=== PATIENT | female | born 1960 | race Caucasian/White ===

== ENCOUNTER 2022-11-03 11:28 | Observation (INO) ==
--- NOTE | 2022-11-03 12:56 | DR.GENAD ---
HPI Time Seen Time Seen by Provider: 11/03/22 12:56 PCP Primary Care Physician: Justin Frankel/Bon Complaint/Symptoms Chief Complaint Doctors Comments: BLOOD IN STOOL YESTERDAY AND THIS AM Chief Complaint:: Patient noticed yesterday evening an episode of rectal bleeding. She states she has a soft stool prior to noticing the blood, Patient states she had esophageal banding of ligation [facility] per Dr Guo 10/18/22. Patient states she is having pain in umbilical region COVID-19 Coronavirus risk:travel/contact w/high risk person: No Has patient experienced Coronavirus symptoms: No Source History Provided: Patient Mode of Arrival Mode of Arrival: Ambulatory Timing Onset of Chief Complaint: 11/02/22 PMH PMH Past Medical History: Yes Past Medical History: Anemia, Cirrhosis, Diabetes, Hypertension and Hypothyroidism Past Medical History Comment: AFIB Past Surgical History: Yes Surgical History: Cholecystectomy and Tonsillectomy Past Surgical History Comment: Hernia repairs x 3 Family History History of Family Medical Conditions: Yes Family Medical History: Diabetes Mellitus, Coronary Artery Disease, Sudden Cardiac and Hypertension Social History Does patient currently use any type of tobacco product: No Have you used tobacco products in the last 12 months: No Type of Tobacco Use: None Does any household member use tobacco: No Alcohol Use: None Do you use any recreational Drugs:: No Lives With: Spouse Lives Where: Home Travel Risk Coronavirus risk:travel/contact w/high risk person: No Has patient experienced Coronavirus symptoms: No Infectious screening In the last 2 months have you had wt loss of >10#?: NO Have you had fever, night sweats or hemotysis?: No Have you traveled outside the country in the last 6 months?: No Isolation: Standard ROS Review of Systems Constitutional: Other (ABDOMINAL PAIN WITH LOWER GI BLEED) Eyes: No Symptoms Reported ENTM: No Symptoms Reported Respiratoy: No Symptoms Reported Cardiovascular: No Symptoms Reported Gastrointestinal/Abdominal: Abdominal Pain (PERIUMBILICAL) and Nausea Genitourinary: No Symptoms Reported Neurological: No Symptoms Reported Musculoskeletal: No Symptoms Reported Integumentary: No Symptoms Reported Hematologic/Lymphatic: No Symptoms Reported Endocrine: No Symptoms Reported Psychiatric: No Symptoms Reported PE Vital Signs Vitals: Vital Signs Temperature 98.2 F Pulse Rate 64 Respiratory Rate 16 Blood Pressure 131/62 O2 Sat by Pulse Oximetry 99 General Limitations: No Limitations and Physical Limitation (ATAXIC GAIT) General Appearance: In Distress (MODERATE DISTRESS) Head Head Exam: Normal Inspection Eyes Eye exam: Normal Appearance and PERRL ENT ENT Exam: Normal Exam and Normal Oropharynx External Ear Exam: Normal External Inspection TM/Canal Exam: Bilateral: Normal Nose Exam: Normal Nose Exam Mouth Exam: Normal Inspection Throat Exam: Normal Inspection Neck Neck Exam: Normal Inspection Chest Chest Inspection: Normal Inspection and Symmetric Chest Wall Rise Respiratory Respiratory Exam: Normal Lung Sounds Bilat Respiratory Exam: Bilateral: Clear to Auscultation Cardiovascular Cardiovascular Exam: Regular Rate and Normal Rhythm Abdominal Exam Abdominal Exam: Normal Inspection, Normal Bowel Sounds and Tenderness (PERIUMBILICAL AREA) Abdominal Tenderness: Other (PERIUMBILICAL) Extremities Extremities Exam: Normal Inspection Back Back Exam: Normal Inspection Psychiatric Psychiatric Exam: Normal Affect Skin Skin Exam: Warm, Dry and Intact MDM Differential Diagnosis Differential Diagnosis: LOWER GI BLEED, UMBILICAL HERNIA COURSE Treatment Treatment: PATIENT REMAINED STABLE DURING ER VISIT. CT OF ABD/PELVIS SHOWED MIDLIN VENTRAL HERNIA CONTAINING A LOOP OF MILDLY DILATED SMALL BOWEL,MESENTERIC FAT AND PERITONEAL FLUIS. THE LOOP OF SMALL BOWEK WITHIN THE HERNIA IS MILDLY DILATED POSSIBLY DUE TO MILD OBSTRUCTION OFAT THE ORAFICE OF THE HERNIA. ENCARCERATION IS POSSIBLE. SURGICAL EVALUATION IS RECOMENDED. THE PATIEN HAD A POSITIVE HEMOCCULT STOOL. PATIENT WAS TOLD THE RESULTS OF THE FINDINGS AND THAT WE NEEDED TO GET A SURGICAL CONSULT. WE CONSULTED DR CRUZ AT 1655 AND HE STATED THAT HE WOULD CONSULT ON THE PATIENT BUT ADMIT TO MEDICINE. SPOKE TO DR WOO AT 1700 AND HE STATED THAT HE WOULD ACCEPT THE PATIENT. UTILIZATION REVIEW STATED TO ADMIT TO OBSERVATION. INCARCERATED VENTRAL HERNIA AND LOWER GI BLEED. ROR Labs Reviewed Laboratory Results Reviewed?: Yes 11/03/22 12:57 11/03/22 12:57 Laboratory: WBC 2.6 X10^3/uL (3.6-10.0) L 11/03/22 12:57 RBC 3.37 X10^6/uL (3.5-5.4) L 11/03/22 12:57 Hgb 10.7 g/dL (12.0-16.0) L 11/03/22 12:57 Hct 31.1 % (36.0-47.0) L 11/03/22 12:57 MCV 92.3 fL (80.0-100.0) 11/03/22 12:57 MCH 31.6 pg (27.0-34.0) 11/03/22 12:57 MCHC 34.3 g/dL (33.0-35.0) 11/03/22 12:57 RDW 12.8 % (11.6-16.5) 11/03/22 12:57 Plt Count 54 X10^3/uL (150.0-450.0) L 11/03/22 12:57 MPV 8.6 fL (7.4-11.0) 11/03/22 12:57 Neut % (Auto) 71.0 % (42.0-75.0) 11/03/22 12:57 Lymph % (Auto) 12.9 % (21.0-51.0) L 11/03/22 12:57 Bent % (Auto) 8.9 % (0.0-13.0) 11/03/22 12:57 Eos % (Auto) 6.1 % (0.9-2.9) H 11/03/22 12:57 Baso % (Auto) 1.1 % (0.2-1.0) H 11/03/22 12:57 Neut # (Auto) 1.9 x10^3/uL (2.2-4.8) L 11/03/22 12:57 Lymph # (Auto) 0.3 X10^3/uL (1.3-2.9) L 11/03/22 12:57 Bent # (Auto) 0.2 x10^3/uL (0.3-0.8) L 11/03/22 12:57 Eos # (Auto) 0.2 x10^3/uL (0.0-0.2) 11/03/22 12:57 Baso # (Auto) 0.0 X10^3/uL (0.0-0.1) 11/03/22 12:57 Absolute Nucleated RBC 0.0 /100WBC 11/03/22 12:57 PT 14.9 SECONDS (11.8-14.3) 11/03/22 12:57 INR Target Range - 11/03/22 12:57 INR 1.19 (0.8-1.3) 11/03/22 12:57 APTT 30.7 SECONDS (22.9-36.5) 11/03/22 12:57 PTT Comment - 11/03/22 12:57 Sodium 135 mmol/L (136-145) L 11/03/22 12:57 Corrected Sodium 136 mmol/L (136-145) 11/03/22 12:57 Potassium 4.0 mmol/L (3.5-5.1) 11/03/22 12:57 Chloride 100 mmol/L (98-107) 11/03/22 12:57 Carbon Dioxide 30.5 mmol/L (21-32) 11/03/22 12:57 BUN 20 mg/dL (7-18) H 11/03/22 12:57 Creatinine 1.06 mg/dL (0.55-1.02) H 11/03/22 12:57 Est GFR (MDRD) Af Amer > 60 (>60) 11/03/22 12:57 Est GFR (MDRD) Non-Af 56 (>60) L 11/03/22 12:57 Glucose 143 mg/dL (65-99) H 11/03/22 12:57 Calcium 8.3 mg/dL (8.5-10.1) L 11/03/22 12:57 Corrected Calcium 8.9 mg/dL (8.5-10.1) 11/03/22 12:57 Total Bilirubin 0.50 mg/dL (0.2-1.0) 11/03/22 12:57 AST 16 Units/L (15-37) 11/03/22 12:57 ALT 12 Units/L (12-78) 11/03/22 12:57 Alkaline Phosphatase 63 Units/L (46-116) 11/03/22 12:57 Total Protein 6.2 g/dL (6.4-8.2) L 11/03/22 12:57 Albumin 3.2 g/dL (3.4-5.0) L 11/03/22 12:57 Globulin 3.0 g/dL (2.5-4.5) 11/03/22 12:57 Albumin/Globulin Ratio 1.1 Ratio (1.1-2.1) 11/03/22 12:57 Specimen Type Clean catch urine 11/03/22 13:42 Urine Color Yellow (YELLOW) 11/03/22 13:42 Urine Appearance Clear (CLEAR) 11/03/22 13:42 Urine pH 6.0 (5.0 - 8.0) 11/03/22 13:42 Ur Specific [place] 1.010 (1.000-1.030) 11/03/22 13:42 Urine Protein Negative (NEGATIVE) 11/03/22 13:42 Urine Glucose (UA) Negative (NEGATIVE) 11/03/22 13:42 Urine Ketones Negative (NEGATIVE) 11/03/22 13:42 Urine Blood Negative (NEGATIVE) 11/03/22 13:42 Urine Nitrite Negative (NEGATIVE) 11/03/22 13:42 Urine Bilirubin Negative (NEGATIVE) 11/03/22 13:42 Urine Urobilinogen Normal (NORMAL) 11/03/22 13:42 Ur Leukocyte Esterase Negative (NEGATIVE) 11/03/22 13:42 Stool Occult Blood Positive (NEGATIVE) A 11/03/22 14:18 SARS-CoV-2 (PCR) Negative (NEGATIVE) 11/03/22 13:35 Opioid Opioid Risk Tool Age (Hector box if 16-45): No History of Preadolescent Sexual Abuse: No Total: 0 Total Score Risk Category: Low Risk Copyright: Ralph JACKSON predicting aberrant behaviors Discharge Plan Diagnosis Discharge Problem: Incarcerated ventral hernia, Acute lower gastrointestinal bleeding Discharge Plan Patient Disposition: ADMITTED INPATIENT Condition: Stable Orders to Discharge Patient Discharge Orders: Transfer (Routine); Ordered 11/03/22 Ordered By: Luis Hillman
[2022-11-03 13:09] LABS: BASOPHILS % (AUTO) 1.1 % (0.2-1.0); EOSINOPHILS # (AUTO) 0.2 x10^3/uL (0.0-0.2); EOSINOPHILS % (AUTO) 6.1 % (0.9-2.9); HEMATOCRIT 31.1 % (36.0-47.0); HEMOGLOBIN 10.7 g/dL (12.0-16.0); LYMPHOCYTES # (AUTO) 0.3 X10^3/uL (1.3-2.9); LYMPHOCYTES % (AUTO) 12.9 % (21.0-51.0); MEAN CORPUSCULAR HEMOGLOBIN 31.6 pg (27.0-34.0); MEAN CORPUSCULAR HGB CONC 34.3 g/dL (33.0-35.0); MEAN CORPUSCULAR VOLUME 92.3 fL (80.0-100.0); MEAN PLATELET VOLUME 8.6 fL (7.4-11.0); MONOCYTES # (AUTO) 0.2 x10^3/uL (0.3-0.8); MONOCYTES % (AUTO) 8.9 % (0.0-13.0); NEUTROPHILS # (AUTO) 1.9 x10^3/uL (2.2-4.8); PLATELET COUNT 54 X10^3/uL (150.0-450.0); RED BLOOD COUNT 3.37 X10^6/uL (3.5-5.4); RED CELL DISTRIBUTION WIDTH 12.8 % (11.6-16.5); WHITE BLOOD COUNT 2.6 X10^3/uL (3.6-10.0)
[2022-11-03 13:13] LABS: INR 1.19 (0.8-1.3)
[2022-11-03] MEDS ORDERED: OMNIPAQUE 350 mg/mL 100 mL BTL 100 ML ONE (13:16)
[2022-11-03 13:19] LABS: ALANINE AMINOTRANSFERASE 12 Units/L (12-78); ALBUMIN 3.2 g/dL (3.4-5.0); ALKALINE PHOSPHATASE 63 Units/L (46-116); ASPARTATE AMINO TRANSFERASE 16 Units/L (15-37); BLOOD UREA NITROGEN 20 mg/dL (7-18); CALCIUM 8.3 mg/dL (8.5-10.1); CARBON DIOXIDE 30.5 mmol/L (21-32); CHLORIDE 100 mmol/L (98-107); COR CA(FOR HYPOALB) 8.9 mg/dL (8.5-10.1); COR NA(FOR HYPERGLY) 136 mmol/L (136-145); CREATININE 1.06 mg/dL (0.55-1.02); GLUCOSE 143 mg/dL (65-99); SODIUM 135 mmol/L (136-145); TOTAL PROTEIN 6.2 g/dL (6.4-8.2); eGFR NON BLACK RACES 56 (>60)
[2022-11-03 13:55] LABS: BILIRUBIN,URINE NEGATIVE (NEGATIVE); BLOOD/HEMOGLOBIN,URINE NEGATIVE (NEGATIVE); GLUCOSE, URINE NEGATIVE (NEGATIVE); KETONES,URINE NEGATIVE (NEGATIVE); LEUKOCYTE ESTERASE ,URINE NEGATIVE (NEGATIVE); NITRITES,URINE NEGATIVE (NEGATIVE); PROTEIN,URINE NEGATIVE (NEGATIVE); UROBILINOGEN,URINE NORMAL (NORMAL)
[2022-11-03 14:09] LABS: APPEARANCE,URINE CLEAR (CLEAR); COLOR,URINE YELLOW (YELLOW)
--- NOTE | 2022-11-03 14:30 | CT ---
HISTORYRectal bleeding, abdominal painSTUDYCT abdomen pelvis with contrastTechnique: Axial post-contrast images with coronal and sagittal reformats. Dose reduction procedures were used with mA/kv adjusted for body size.[id number] bases are clear. There is a small hiatal hernia present. The liver is normal in size but demonstrates a slightly nodular contour suggestive of possible cirrhosis. Clinical and historical correlation is recommended. No focal space-occupying disease. Patient is status post cholecystectomy. Splenomegaly is present. No focal space-occupying disease. The adrenal glands are normal. The pancreas is normal. There is transmural thickening involving the descending duodenum with some periduodenal inflammation suggestive of acute duodenitis. Findings are similar to but not as severe as those noted on the prior examination 09/12/2022. Duodenal ulcer is not excluded. Upper GI or endoscopy may be of further diagnostic value. Abdominal aorta is normal in caliber. No enlarged intraperitoneal or retroperitoneal lymphadenopathy identified. The appendix is not identified with absolute certainty. There are no secondary findings appendicitis present. There are no findings suggestive of enteritis, colitis, or diverticulitis. There are some varices in the area of the spleen suggesting the presence of portal hypertension. There is a midline infraumbilical possibly recurrent ventral hernia containing some loops of ileum and a moderate amount of fluid. The appearance is unchanged from that present on the prior examination. The loop of small bowel within the hernia demonstrates some dilatation to a maximum diameter 2.9 cm. Mild obstruction may be present. Surgical evaluation is recommended. No pelvic masses, pelvic fluid, or pelvic lymphadenopathy is identified. No bladder abnormality is identified. No lytic or blastic skeletal lesions of significance are identified.IMPRESSIONMidline ventral hernia containing a loop of mildly dilated small bowel, mesenteric fat, and peritoneal fluid. The loop of small bowel within the hernia is mildly dilated possibly due to mild obstruction at the orifice of the hernia. Incarceration is possible. Surgical evaluation is recommended.Findings consistent with moderately severe duodenitis. Duodenal ulcer not excluded. The findings are similar but not as severe as those noted on the prior examination. Endoscopy may be of further diagnostic value.Possible cirrhosis, mild splenomegaly, and findings suggestive of portal hypertensionSmall hiatal herniaElectronically signed by: ROLANDO MINA (Nov 03, 2022 14:29:07)
[2022-11-03] MEDS ORDERED: ANCEF VIAL 1 GRAM ONE (17:42)
[2022-11-03] MEDS: ANCEF VIAL 1 GRAM IVP SCH ×2 (17:45→23:52)
[2022-11-03 18:19] VITALS: BMI 46.5
[2022-11-03] MEDS: NS 1,000 ML IV 1,000 ML IV SCH ×2 (20:45)
[2022-11-04] MEDS: NS 1,000 ML IV 1,000 ML IV SCH ×2 (02:51→04:47)
[2022-11-04] MEDS: ANCEF VIAL 1 GRAM IVP SCH ×3 (05:44→21:00)
[2022-11-04 05:45] LABS: BASOPHILS % (AUTO) 0.9 % (0.2-1.0); EOSINOPHILS # (AUTO) 0.1 x10^3/uL (0.0-0.2); EOSINOPHILS % (AUTO) 4.8 % (0.9-2.9); HEMOGLOBIN 10.7 g/dL (12.0-16.0); LYMPHOCYTES # (AUTO) 0.2 X10^3/uL (1.3-2.9); LYMPHOCYTES % (AUTO) 12.5 % (21.0-51.0); MEAN CORPUSCULAR HEMOGLOBIN 31.9 pg (27.0-34.0); MEAN CORPUSCULAR HGB CONC 34.5 g/dL (33.0-35.0); MEAN CORPUSCULAR VOLUME 92.3 fL (80.0-100.0); MEAN PLATELET VOLUME 8.9 fL (7.4-11.0); MONOCYTES # (AUTO) 0.1 x10^3/uL (0.3-0.8); NEUTROPHILS # (AUTO) 1.3 x10^3/uL (2.2-4.8); NEUTROPHILS % (AUTO) 73.8 % (42.0-75.0); PLATELET COUNT 44 X10^3/uL (150.0-450.0); RED BLOOD COUNT 3.35 X10^6/uL (3.5-5.4); RED CELL DISTRIBUTION WIDTH 12.8 % (11.6-16.5)
[2022-11-04 05:47] LABS: ALANINE AMINOTRANSFERASE 9 Units/L (12-78); ALBUMIN 3.1 g/dL (3.4-5.0); ALKALINE PHOSPHATASE 63 Units/L (46-116); ASPARTATE AMINO TRANSFERASE 15 Units/L (15-37); BLOOD UREA NITROGEN 14 mg/dL (7-18); CALCIUM 8.5 mg/dL (8.5-10.1); CARBON DIOXIDE 29.6 mmol/L (21-32); CHLORIDE 104 mmol/L (98-107); COR CA(FOR HYPOALB) 9.2 mg/dL (8.5-10.1); COR NA(FOR HYPERGLY) 140 mmol/L (136-145); CREATININE 0.99 mg/dL (0.55-1.02); GLUCOSE 114 mg/dL (65-99); POTASSIUM 3.5 mmol/L (3.5-5.1); SODIUM 140 mmol/L (136-145); eGFR NON BLACK RACES > 60 (>60)
[2022-11-04 05:49] LABS: WHITE BLOOD COUNT 1.8 X10^3/uL (3.6-10.0)
[2022-11-04] MEDS: NS + KCL 20 MEQ/L 1,000 ML IV SCH ×4 (07:35→22:51)
[2022-11-04] MEDS ORDERED: CONSULT PHARMACY - POTASSIUM & MAGNESIUM XX SCH (08:00)
[2022-11-04] MEDS ORDERED: ZOFRAN INJ 4 MG VIAL IVP PRN (08:23)
--- NOTE | 2022-11-04 08:48 | DR.H&P ---
H&P - History & Physical for Day of: H&P Date: 11/03/22 - Chief Complaint Chief Complaint: RECTAL BLEEDING, ABDOMINAL PAIN, NAUSEA - History of Present Illness History of Present Illness: IS A 62 YEAR OLD PATIENT OF DR.ERIC BARBA. SHE HAS A PMH OF ANEMIA, CIRRHOSIS, DM II, HTN, HYPOTHYROIDISM, A- FIB, CHOLECYSTECTOMY, TONSILLECTOMY, AND HERNIA REPAIR X 3. SHE PRESENTED TO THE ER WITH COMPLAINTS OF RECTAL BLEEDING, NAUSEA, AND ALSO PAIN IN THE UMBILICAL REGION. SHE REPORTS THAT SYMPTOMS STARTED ON DAY PRIOR. SHE DOES ADMIT TO ESOPHAGEAL BAND LIGATION AT [facility] IN [place] BY ON 10/18/22. ON ARRIVAL TO THE HOSPITAL, HER VITALS WERE 98.2-64-16-99%-131/62. LABS WERE OBTAINED. WBC 2.6, RBC 3.37, HGB 10.7, HCT 31.1, PLT COUNT 54, SODIUM 135, POTASSIUM 4.0, CHLORIDE 100, CARBON DIOXIDE 30.5, BUN 20, CREATININE 1.06, CALCIUM 8.3, AST 16, ALT 12, ALK PHOS 63, TOTAL PROTEIN 6.2, ALBUMIN 3.2. URINALYSIS WAS OBTAINED AND WAS UNREMARKABLE. STOOL WAS POSITIVE FOR OCCULT BLOOD. COVID-19 NEGATIVE. AN ABDOMEN/PELVIS CT WITH CONTRAST WAS OBTAINED AND REVEALED: Midline ventral hernia containing a loop of mildly dilated small bowel, mesenteric fat, and peritoneal fluid. The loop of small bowel within the hernia is mildly dilated possibly due to mild obstruction at the orifice of the hernia. Incarceration is possible. Surgical evaluation is recommended. Findings consistent with moderately severe duodenitis. Duodenal ulcer not excluded. The findings are similar but not as severe as those noted on the prior examination. Endoscopy may be of further diagnostic value. Possible cirrhosis, mild splen omegaly, and findings suggestive of portal hypertension. Small hiatal hernia. DECISION WAS MADE TO ADMIT PATIENT TO THE HOSPITAL FOR FURTHER EVALUATION AND TREATMENT OF INCARCERATED VENTRAL HERNIA, LOWER GI BLEED. WE WILL CONSULT , GENERAL SURGEON. SHE WILL BE STARTED ON NORMAL SALINE WITH 20MEQ KCL AT 125 ML/HR, ZOFRAN 4MG IV Q4H PRN NAUSEA, PROTONIX 40MG IV DAILY, AND ANCEF 2G IV Q8H. WE WILL RESUME HER HOME MEDICATIONS OF LIPITOR, ZYRTEC, LASIX, NEURONTIN, LEVOTHYROXINE, LOSARTAN, MOBIC, INDERAL, REQUIP, ALDACTONE, AND CARAFATE. OTHERWISE, WE WILL FOLLOW UP WITH AM LABS AND CONTINUE TO MONITOR. TIME SPENT ON CLINICAL ASSESSMENT, REVIEWING LABS AND IMAGING, DECISION MAKING, AND DOCUMENTATION GREATER THAN 75 MINUTES. - Past Medical History Past Medical History: Hypertension, Diabetes, Cirrhosis, Hypothyroidism, Anemia - Past Surgical History Surgical History: Cholecystectomy, Tonsillectomy - Family History Family Medical History: Heart Failure, Sudden Cardiac - Social History Does patient currently use any type of tobacco product: No Have you used tobacco products in the last 12 months: No Type of Tobacco Use: None Does any household member use tobacco: No Alcohol Use: None Drug Use: None - Review of Systems Constitutional: Weakness Eyes: No Symptoms Reported ENT: No Symptoms Reported Respiratory: No Symptoms Reported Cardiovascular: No Symptoms Reported Gastrointestinal: Nausea, Abdominal Pain, Hematochezia Genitourinary: No Symptoms Reported Musculoskeletal: No Symptoms Reported Skin: No Symptoms Reported Neurological: Weakness - Physical Exam Vital Signs: Vital Signs Temperature 97.8 F Temperature 97.7 F Pulse Rate [Right Brachial] 64 Pulse Rate [Right Brachial] 68 Respiratory Rate 18 Respiratory Rate 20 Blood Pressure [Left Arm] 151/64 Blood Pressure [Left Arm] 136/72 O2 Sat by Pulse Oximetry 98 O2 Sat by Pulse Oximetry 99 Oriented: Normal Eyes: Normal Ear: Normal Nose: Normal Throat: Normal Respiratory: Diminished Throughout Cardiovascular: Normal : Normal Auscultation: Bowel Sounds: Normal Palpation: Normal Tenderness: Periumbilical Skin: Normal Musculoskeletal: Normal Psychiatric: Normal Mood Description: Calm Affect: Normal Speech Pattern: Clear - Assessment/Plan (1) Incarcerated ventral hernia Status: Acute Plan: ADMIT, SURGICAL CONSULT, NORMAL SALINE WITH 20MEQ KCL AT 125 ML/HR, ZOFRAN 4MG IV Q4H PRN NAUSEA, PROTONIX 40MG IV DAILY, AND ANCEF 2G IV Q8H. (2) Acute lower gastrointestinal bleeding Status: Acute (3) Anemia Qualifiers: Anemia type: iron deficiency Iron deficiency anemia type: unspecified iron deficiency Qualified Code(s): D50.9 - Iron deficiency anemia, unspecified Status: Chronic Plan: MONITOR (4) Cirrhosis Qualifiers: Hepatic cirrhosis type: unspecified hepatic cirrhosis Ascites presence: unspecified Qualified Code(s): K74.60 - Unspecified cirrhosis of liver Status: Chronic Plan: RESUME ALDACTONE (5) DM (diabetes mellitus) Qualifiers: Diabetes mellitus type: type 2 Diabetes mellitus checker stocker insulin use: unspecified checker stocker insulin use status Diabetes mellitus complication status: without complication Qualified Code(s): E11.9 - Type 2 diabetes mellitus without complications Status: Chronic (6) HTN (hypertension) Qualifiers: Hypertension type: primary hypertension Qualified Code(s): I10 - Essential (primary) hypertension Status: Chronic Plan: RESUME LOSARTAN AND INDERAL (7) Hypothyroidism Qualifiers: Hypothyroidism type: acquired Qualified Code(s): E03.9 - Hypothyroidism, unspecified Status: Chronic Plan: RESUME LEVOTHYROXINE (8) Hyperlipidemia Qualifiers: Hyperlipidemia type: mixed hyperlipidemia Qualified Code(s): E78.2 - Mixed hyperlipidemia Status: Chronic Plan: RESUME LIPITOR (9) Restless leg syndrome Status: Chronic Plan: RESUME REQUIP AND NEURONTIN - Allergies Allergies/Adverse Reactions: Allergies Allergy/AdvReac Type Severity Reaction Status Date / Time No Known Allergies Allergy Verified 09/21/22 09:33 - Medications Home Medications: Home Medications Medication Instructions Recorded Confirmed apixaban 5 mg tablet (Eliquis) 5 mg PO BID 11/03/22 11/03/22 aspirin 81 mg tablet,delayed 81 mg PO DAILY 11/03/22 11/03/22 release atorvastatin 10 mg tablet 10 mg PO QPM 11/03/22 11/03/22 cetirizine 10 mg tablet 10 mg PO QDAY 11/03/22 11/03/22 ferrous sulfate 325 mg (65 mg 325 mg PO BID 11/03/22 11/03/22 iron) tablet (FeroSul) furosemide 40 mg tablet 40 mg PO QDAY 11/03/22 11/03/22 gabapentin 300 mg capsule 300 mg PO BID 11/03/22 11/03/22 levothyroxine 75 mcg tablet 75 mcg PO QDAY 11/03/22 11/03/22 losartan 50 mg tablet 50 mg PO QDAY 11/03/22 11/03/22 meloxicam 15 mg tablet 15 mg PO QDAY 11/03/22 11/03/22 pantoprazole 40 mg tablet,delayed 40 mg PO BID 11/03/22 11/03/22 release promethazine 25 mg tablet 25 mg PO Q6H PRN nausea/vomiting 11/03/22 11/03/22 propranolol 10 mg tablet 20 mg PO TID 11/03/22 11/03/22 ropinirole 1 mg tablet 1 mg PO QPM 11/03/22 11/03/22 spironolactone 50 mg tablet 50 mg PO QDAY 11/03/22 11/03/22 sucralfate 1 gram tablet 1 g PO QID 11/03/22 11/03/22
[2022-11-04] MEDS ORDERED: K-DUR TAB 20 MEQ PO SCH (09:00)
[2022-11-04] MEDS ORDERED: MOBIC TAB 15 MG PO SCH (09:00)
[2022-11-04] MEDS: PROTONIX INJ 40 MG VIAL IVP SCH (09:07)
[2022-11-04] MEDS: ALDACTONE TAB 25 MG PO SCH (09:07)
[2022-11-04] MEDS: HEMOCYTE-PLUS PO SCH ×2 (09:08→20:58)
[2022-11-04] MEDS: COZAAR PO SCH (09:08)
[2022-11-04] MEDS: CARAFATE PO SCH ×4 (09:08→20:58)
[2022-11-04] MEDS: LASIX PO SCH (09:08)
[2022-11-04] MEDS: SYNTHROID 75 mcg TAB PO SCH (09:09)
[2022-11-04] MEDS: NEURONTIN CAP 300 MG PO SCH ×2 (09:09→21:00)
[2022-11-04] MEDS: ZyrTEC TAB 10 MG PO SCH (09:09)
--- NOTE | 2022-11-04 09:37 | EKG ---
Test Reason : PRE-OP Blood Pressure : */* mmHG Vent. Rate : 56 BPM Atrial Rate : 56 BPM P-R Int : 180 ms QRS Dur : 88 ms QT Int : 460 ms P-R-T Axes : 36 -18 24 degrees QTc Int : 443 ms Sinus bradycardia Otherwise normal ECG No previous ECGs available Confirmed by Alejandro Estrada ([id number]) on 11/04/2022 9:57:25 AM Referred By: Confirmed By: Alejandro Estrada
--- NOTE | 2022-11-04 10:43 | RAD ---
HISTORYPreop ventral herniaSTUDYPortable AP chestCOMPARISONJune 2021FINDINGSConsidering expiratory technique with low lung volumes, heart size is normal. There is no definite pneumonia, atelectasis, CHF or pleural fluid.IMPRESSIONConsidering partial expiratory phase, normal exam.Electronically signed by: NICHOLAS BARNETT (Nov 04, 2022 10:41:57)
[2022-11-04] MEDS: INDERAL TAB 10 MG PO SCH ×2 (13:17→21:00)
[2022-11-04] MEDS: LIPITOR TAB 10 MG PO SCH (20:58)
[2022-11-04] MEDS: REQUIP PO SCH (20:59)
[2022-11-05] MEDS: NS + KCL 20 MEQ/L 1,000 ML IV SCH ×4 (04:42→21:36)
[2022-11-05] MEDS: ANCEF VIAL 1 GRAM IVP SCH ×3 (05:29→21:36)
[2022-11-05] MEDS: INDERAL TAB 10 MG PO SCH ×3 (05:29→21:35)
[2022-11-05] MEDS: SYNTHROID 75 mcg TAB PO SCH (05:30)
[2022-11-05 05:45] LABS: BASOPHILS % (AUTO) 0.9 % (0.2-1.0); EOSINOPHILS # (AUTO) 0.1 x10^3/uL (0.0-0.2); EOSINOPHILS % (AUTO) 5.5 % (0.9-2.9); HEMATOCRIT 29.8 % (36.0-47.0); HEMOGLOBIN 10.2 g/dL (12.0-16.0); LYMPHOCYTES # (AUTO) 0.3 X10^3/uL (1.3-2.9); LYMPHOCYTES % (AUTO) 15.2 % (21.0-51.0); MEAN CORPUSCULAR HEMOGLOBIN 31.7 pg (27.0-34.0); MEAN CORPUSCULAR HGB CONC 34.1 g/dL (33.0-35.0); MEAN PLATELET VOLUME 8.5 fL (7.4-11.0); MONOCYTES # (AUTO) 0.2 x10^3/uL (0.3-0.8); NEUTROPHILS # (AUTO) 1.3 x10^3/uL (2.2-4.8); NEUTROPHILS % (AUTO) 69.4 % (42.0-75.0); PLATELET COUNT 43 X10^3/uL (150.0-450.0); RED BLOOD COUNT 3.21 X10^6/uL (3.5-5.4); RED CELL DISTRIBUTION WIDTH 13.1 % (11.6-16.5)
[2022-11-05 05:56] LABS: ALANINE AMINOTRANSFERASE 9 Units/L (12-78); ALBUMIN 2.8 g/dL (3.4-5.0); ALKALINE PHOSPHATASE 60 Units/L (46-116); ASPARTATE AMINO TRANSFERASE 16 Units/L (15-37); BLOOD UREA NITROGEN 8 mg/dL (7-18); CALCIUM 8.3 mg/dL (8.5-10.1); CARBON DIOXIDE 26.3 mmol/L (21-32); CHLORIDE 108 mmol/L (98-107); COR CA(FOR HYPOALB) 9.3 mg/dL (8.5-10.1); CREATININE 0.85 mg/dL (0.55-1.02); GLUCOSE 98 mg/dL (65-99); POTASSIUM 4.1 mmol/L (3.5-5.1); SODIUM 141 mmol/L (136-145); TOTAL PROTEIN 5.7 g/dL (6.4-8.2); eGFR NON BLACK RACES > 60 (>60)
[2022-11-05 06:32] LABS: WHITE BLOOD COUNT 1.9 X10^3/uL (3.6-10.0)
[2022-11-05 06:33] LABS: BASOPHILS % (MANUAL) 0 % (0-1); PLATELET MORPHOLOGY COMMENT NORMAL (NORMAL)
[2022-11-05 06:34] LABS: TOXIC GRANULATION 1+
--- NOTE | 2022-11-05 08:56 | RAD ---
HISTORYIncarcerated herniaSTUDYKUBCOMPARISONCT abdomen November 03, 2022FINDINGSSupine views of the abdomen are of limited technical quality; detail is significantly limited.There is no obvious mass, marked intestinal dilatation or other abnormality.IMPRESSIONNo acute findings although the study is technically suboptimal and should be repeated, as clinically appropriate.Electronically signed by: NICHOLAS BARNETT (Nov 05, 2022 08:54:37)
[2022-11-05] MEDS: HEMOCYTE-PLUS PO SCH ×2 (08:57→21:35)
[2022-11-05] MEDS: NEURONTIN CAP 300 MG PO SCH ×2 (08:57→21:35)
[2022-11-05] MEDS: ALDACTONE TAB 25 MG PO SCH (08:58)
[2022-11-05] MEDS: ZyrTEC TAB 10 MG PO SCH (08:58)
[2022-11-05] MEDS: COZAAR PO SCH (08:59)
[2022-11-05] MEDS: LASIX PO SCH (08:59)
[2022-11-05] MEDS: PROTONIX INJ 40 MG VIAL IVP SCH (09:00)
--- NOTE | 2022-11-05 09:41 | DR.PROGNOT ---
HOSPITAL PROGRESS NOTE Progress Note for Day of: Progress Note Date: 11/05/22 Chief Complaint Chief Complaint: much less abdominal pain , no nausea , no vomiting , WBC 1.9..Platelets 43 .. Hgb 10.2 Past Medical Family Social History Past Med/Fam/Surg Hx: No changes since H&P Allergies: Allergies No Known Allergies Allergy (Verified 09/21/22 09:33) Vital Signs Vital Signs: Vital Signs Temperature 97.9 F Temperature 97.8 F Temperature 98 F Pulse Rate [Right Brachial] 59 Pulse Rate [Right Brachial] 71 Pulse Rate [Right Brachial] 71 Respiratory Rate 18 Respiratory Rate 20 Respiratory Rate 20 Blood Pressure [Left Arm] 124/66 Blood Pressure [Left Arm] 115/60 Blood Pressure [Left Arm] 115/60 O2 Sat by Pulse Oximetry 100 O2 Sat by Pulse Oximetry 98 O2 Sat by Pulse Oximetry 98 Physical Exam Oriented: Normal Eyes: Normal Ear: Normal Nose: Normal Throat: Normal Cardiovascular: Normal : Normal GI:Auscultation: Normal GI:Palpation: Normal GI: Tenderness: Other (soft, flat abdomen , non tender ..the umbilical hernia is reducible . BS+ ) Skin: Normal Musculoskeletal: Normal Psychiatric: Normal Mood Description: Calm Affect: Normal Speech Pattern: Clear and Appropriate Laboratory and Diagnostics 11/05/22 05:17 11/05/22 05:17 Labs: Laboratory WBC 1.9 X10^3/uL (3.6-10.0) L* 11/05/22 05:17 RBC 3.21 X10^6/uL (3.5-5.4) L 11/05/22 05:17 Hgb 10.2 g/dL (12.0-16.0) L 11/05/22 05:17 Hct 29.8 % (36.0-47.0) L 11/05/22 05:17 MCV 93.0 fL (80.0-100.0) 11/05/22 05:17 MCH 31.7 pg (27.0-34.0) 11/05/22 05:17 MCHC 34.1 g/dL (33.0-35.0) 11/05/22 05:17 RDW 13.1 % (11.6-16.5) 11/05/22 05:17 Plt Count 43 X10^3/uL (150.0-450.0) L 11/05/22 05:17 Plt Count Comment Decreased (ADEQUATE) A 11/05/22 05:17 MPV 8.5 fL (7.4-11.0) 11/05/22 05:17 Neut % (Auto) 69.4 % (42.0-75.0) 11/05/22 05:17 Lymph % (Auto) 15.2 % (21.0-51.0) L 11/05/22 05:17 [place] % (Auto) 9.0 % (0.0-13.0) 11/05/22 05:17 Eos % (Auto) 5.5 % (0.9-2.9) H 11/05/22 05:17 Baso % (Auto) 0.9 % (0.2-1.0) 11/05/22 05:17 Neut # (Auto) 1.3 x10^3/uL (2.2-4.8) L 11/05/22 05:17 Lymph # (Auto) 0.3 X10^3/uL (1.3-2.9) L 11/05/22 05:17 [place] # (Auto) 0.2 x10^3/uL (0.3-0.8) L 11/05/22 05:17 Eos # (Auto) 0.1 x10^3/uL (0.0-0.2) 11/05/22 05:17 Baso # (Auto) 0.0 X10^3/uL (0.0-0.1) 11/05/22 05:17 Absolute Nucleated RBC 0.1 /100WBC 11/05/22 05:17 Total Counted 50 11/05/22 05:17 Neutrophils % (Manual) 70 % (39-76) 11/05/22 05:17 Lymphocytes % (Manual) 18 % (13-43) 11/05/22 05:17 Monocytes % (Manual) 10 % (4-9) H 11/05/22 05:17 Eosinophils % (Manual) 2 % (0-6) 11/05/22 05:17 Basophils % (Manual) 0 % (0-1) 11/05/22 05:17 Toxic Granulation 1+ A 11/05/22 05:17 Plt Morphology Comment Normal (NORMAL) 11/05/22 05:17 RBC Morphology Normal (NORMAL) 11/05/22 05:17 PT 14.9 SECONDS (11.8-14.3) 11/03/22 12:57 INR Target Range - 11/03/22 12:57 INR 1.19 (0.8-1.3) 11/03/22 12:57 APTT 30.7 SECONDS (22.9-36.5) 11/03/22 12:57 PTT Comment - 11/03/22 12:57 Sodium 141 mmol/L (136-145) 11/05/22 05:17 Corrected Sodium TNP 11/05/22 05:17 Potassium 4.1 mmol/L (3.5-5.1) 11/05/22 05:17 Chloride 108 mmol/L (98-107) H 11/05/22 05:17 Carbon Dioxide 26.3 mmol/L (21-32) 11/05/22 05:17 BUN 8 mg/dL (7-18) 11/05/22 05:17 Creatinine 0.85 mg/dL (0.55-1.02) 11/05/22 05:17 Est GFR (MDRD) Af Amer > 60 (>60) 11/05/22 05:17 Est GFR (MDRD) Non-Af > 60 (>60) 11/05/22 05:17 Glucose 98 mg/dL (65-99) 11/05/22 05:17 Calcium 8.3 mg/dL (8.5-10.1) L 11/05/22 05:17 Corrected Calcium 9.3 mg/dL (8.5-10.1) 11/05/22 05:17 Magnesium 2.0 mg/dL (2.0-2.9) 11/04/22 04:24 Total Bilirubin 0.70 mg/dL (0.2-1.0) 11/05/22 05:17 AST 16 Units/L (15-37) 11/05/22 05:17 ALT 9 Units/L (12-78) L 11/05/22 05:17 Alkaline Phosphatase 60 Units/L (46-116) 11/05/22 05:17 Total Protein 5.7 g/dL (6.4-8.2) L 11/05/22 05:17 Albumin 2.8 g/dL (3.4-5.0) L 11/05/22 05:17 Globulin 2.9 g/dL (2.5-4.5) 11/05/22 05:17 Albumin/Globulin Ratio 1.0 Ratio (1.1-2.1) L 11/05/22 05:17 Specimen Type Clean catch urine 11/03/22 13:42 Urine Color Yellow (YELLOW) 11/03/22 13:42 Urine Appearance Clear (CLEAR) 11/03/22 13:42 Urine pH 6.0 (5.0 - 8.0) 11/03/22 13:42 Ur Specific [place] 1.010 (1.000-1.030) 11/03/22 13:42 Urine Protein Negative (NEGATIVE) 11/03/22 13:42 Urine Glucose (UA) Negative (NEGATIVE) 11/03/22 13:42 Urine Ketones Negative (NEGATIVE) 11/03/22 13:42 Urine Blood Negative (NEGATIVE) 11/03/22 13:42 Urine Nitrite Negative (NEGATIVE) 11/03/22 13:42 Urine Bilirubin Negative (NEGATIVE) 11/03/22 13:42 Urine Urobilinogen Normal (NORMAL) 11/03/22 13:42 Ur Leukocyte Esterase Negative (NEGATIVE) 11/03/22 13:42 Stool Occult Blood Positive (NEGATIVE) A 11/03/22 14:18 SARS-CoV-2 (PCR) Negative (NEGATIVE) 11/03/22 13:35 Assessment and Plan 1: reducible umbilical hernia.. no need for surgery . 2: portal HTN with yu cytopenia . no active bleeding .. 3: esophageal varices , no active bleeding .. will follow as needed .. Problem Patient Problems: Patient Problems Incarcerated ventral hernia (Acute) K43.6 Acute lower gastrointestinal bleeding (Acute) K92.2 Anemia (Chronic) D64.9 Cirrhosis (Chronic) K74.60 DM (diabetes mellitus) (Chronic) E11.9 HTN (hypertension) (Chronic) I10 Hypothyroidism (Chronic) E03.9 Hyperlipidemia (Chronic) E78.5 Restless leg syndrome (Chronic) G25.81
[2022-11-05] MEDS: CARAFATE PO SCH ×4 (09:55→21:36)
[2022-11-05] MEDS: LIPITOR TAB 10 MG PO SCH (21:35)
[2022-11-05] MEDS: REQUIP PO SCH (21:35)
[2022-11-06] MEDS: NS + KCL 20 MEQ/L 1,000 ML IV SCH ×3 (01:56→10:12)
[2022-11-06 05:02] LABS: EOSINOPHILS # (AUTO) 0.1 x10^3/uL (0.0-0.2); EOSINOPHILS % (AUTO) 4.2 % (0.9-2.9); HEMATOCRIT 27.9 % (36.0-47.0); HEMOGLOBIN 9.5 g/dL (12.0-16.0); LYMPHOCYTES # (AUTO) 0.3 X10^3/uL (1.3-2.9); MEAN CORPUSCULAR HEMOGLOBIN 31.6 pg (27.0-34.0); MEAN CORPUSCULAR VOLUME 92.9 fL (80.0-100.0); MEAN PLATELET VOLUME 8.9 fL (7.4-11.0); MONOCYTES # (AUTO) 0.1 x10^3/uL (0.3-0.8); MONOCYTES % (AUTO) 6.5 % (0.0-13.0); NEUTROPHILS # (AUTO) 1.2 x10^3/uL (2.2-4.8); NEUTROPHILS % (AUTO) 73.3 % (42.0-75.0); PLATELET COUNT 42 X10^3/uL (150.0-450.0); RED BLOOD COUNT 3.01 X10^6/uL (3.5-5.4); RED CELL DISTRIBUTION WIDTH 12.9 % (11.6-16.5)
[2022-11-06 05:10] LABS: WHITE BLOOD COUNT 1.7 X10^3/uL (3.6-10.0)
[2022-11-06 05:18] LABS: ALANINE AMINOTRANSFERASE 9 Units/L (12-78); ALBUMIN 2.8 g/dL (3.4-5.0); ALKALINE PHOSPHATASE 58 Units/L (46-116); ASPARTATE AMINO TRANSFERASE 18 Units/L (15-37); BLOOD UREA NITROGEN 6 mg/dL (7-18); CARBON DIOXIDE 26.6 mmol/L (21-32); CHLORIDE 107 mmol/L (98-107); GLUCOSE 94 mg/dL (65-99); POTASSIUM 3.7 mmol/L (3.5-5.1); SODIUM 141 mmol/L (136-145); TOTAL PROTEIN 5.5 g/dL (6.4-8.2); eGFR NON BLACK RACES > 60 (>60)
[2022-11-06] MEDS: ANCEF VIAL 1 GRAM IVP SCH ×2 (05:31→13:00)
[2022-11-06] MEDS: SYNTHROID 75 mcg TAB PO SCH (05:31)
[2022-11-06] MEDS: INDERAL TAB 10 MG PO SCH ×2 (05:31→13:00)
[2022-11-06] MEDS ORDERED: CONSULT PHARMACY - POTASSIUM & MAGNESIUM XX SCH (06:00)
[2022-11-06] MEDS ORDERED: K-DUR TAB 20 MEQ PO SCH (09:00)
[2022-11-06] MEDS: NEURONTIN CAP 300 MG PO SCH (09:27)
[2022-11-06] MEDS: HEMOCYTE-PLUS PO SCH (09:27)
[2022-11-06] MEDS: ZyrTEC TAB 10 MG PO SCH (09:27)
[2022-11-06] MEDS: COZAAR PO SCH (09:27)
[2022-11-06] MEDS: CARAFATE PO SCH ×2 (09:27→12:56)
[2022-11-06] MEDS: ALDACTONE TAB 25 MG PO SCH (09:28)
[2022-11-06] MEDS: LASIX PO SCH (09:28)
[2022-11-06] MEDS: PROTONIX INJ 40 MG VIAL IVP SCH (09:28)
[2022-11-06] MEDS: MAG-OX TAB PO SCH ×2 (09:28→10:16)
[2022-11-06 09:56] VITALS: RESP 20
--- NOTE | 2022-11-06 10:45 | PCM.PROG ---
Progress Note - Progress Note for Day of Date of Exam: 11/05/22 - Subjective Subjective: IS CURRENTLY INPATIENT STATUS FOR EVALUATION AND TREATMENT OF A REDUCIBLE UMBILICAL HERNIA, PORTAL HTN WITH PANCYTOPENIA, CIRRHOSIS, LOWER GI BLEED. SHE HAS A PMH OF SHE HAS A PMH OF ANEMIA, CIRRHOSIS, DM II, HTN, HYPOTHYROIDISM, A-FIB, CHOLECYSTECTOMY, TONSILLECTOMY, AND HERNIA R EPAIR X 3. SHE HAS ALSO HAD RECENT BANDING OF ESOPHAGEAL VARICIES. TODAY, SHE IS ALERT AND ORIENTED, LYING IN BED ON MORNING ROUNDS. SHE CONTINUES TO COMPLAIN OF OCCASIONAL ABDOMINAL PAIN, BUT REPORTS THAT PAIN IS MUCH LESS THAN ON ADMISSION. ON EXAMINATION, HEART IS REGULAR IN RATE AND RHYTHM. BILATERAL LUNGS ARE CLEAR TO AUSCULTATION. ABDOMEN IS ROUND, SOFT, AND NON-TENDER. UMBILICAL HERNIA IS R EDUCIBLE. NORMAL BOWEL SOUNDS ARE NOTED IN ALL QUADRANTS. HER VITALS THIS MORNING ARE: 97.9-59-18-100%-124/66. LABS WERE OBTAINED. WBC 1.9, RBC 3.21, HGB 10.2, HCT 29.8, PLT COUNT 43, SODIUM 141, POTASSIUM 4.1, CHLORIDE 108, BUN 8, CREATININE 0.85, GLUCOSE 98, CALCIUM 8.3, TOTAL BILI 0.70, AST 16, ALT 9, ALK PHOS 60, TOTAL PROTEIN 5.7, ALBUMIN 2.8. KUB WAS OBTAINED AND REVEALED: There is no obvious mass, marked intestinal dilatation or other abnormality. SHE IS CURRENTLY RECEIVING NORMAL SALINE WITH 20MEQ KCL AT 125 ML/HR, ZOFRAN 4MG IV Q4H PRN NAUSEA, PROTONIX 40MG IV DAILY, AND ANCEF 2G IV Q8H. WE WILL RESUME HER HOME MEDICATIONS OF LIPITOR, ZYRTEC, LASIX, NEURONTIN, LEVOTHYROXINE, LOSARTAN, MOBIC, INDERAL, REQUIP, ALDACTONE, AND CARAFATE. HAS CONSULTED WITH HER AND DOES NOT FEEL LIKE SURGICAL INTERVENTION IS NEEDED AT THIS TIME. WE WILL CONTINUE WITH HER CURRENT PLAN OF CARE TODAY. OTHERWISE, WE WILL FOLLOW UP WITH AM LABS AND CONTINUE TO MONITOR. TIME SPENT ON CLINICAL ASSESSMENT, REVIEWING LABS AND IMAGING, DECISION MAKING, AND DOCUMENTATION GREATER THAN 45 MINUTES. - Past Medical Family Social History Past Med/Fam/Surg Hx: No changes since H&P Allergies: Allergies No Known Allergies Allergy (Verified 09/21/22 09:33) - Vital Signs and I&O's Vital Signs: Vital Signs Temperature 98.3 F Temperature 97.8 F Pulse Rate [Right Brachial] 59 Pulse Rate [Right Brachial] 58 Respiratory Rate 20 Respiratory Rate 18 Blood Pressure [Left Arm] 126/68 Blood Pressure [Left Arm] 142/67 O2 Sat by Pulse Oximetry 99 O2 Sat by Pulse Oximetry 100 O2 Sat by Pulse Oximetry 99 Intake and Output: Intake & Output 11/03/22 11/04/22 11/05/22 11/06/22 11:59 11:59 11:59 11:59 Intake Total 3680 / 3680 4544 / 4544 Balance 3680 / 3680 4544 / 4544 - Physical Exam Oriented: Normal Eyes: Normal Ear: Normal Nose: Normal Throat: Normal Respiratory: Normal Cardiovascular: Normal : Normal Auscultation: Bowel Sounds: Normal Palpation: Normal Tenderness: Other (soft, flat abdomen , non tender ..the umbilical hernia is reducible . BS+) Skin: Normal Musculoskeletal: Normal Psychiatric: Normal Mood Description: Calm Affect: Normal Speech Pattern: Clear, Appropriate - Laboratory and Diagnostics Result Diagrams: 11/06/22 04:29 11/06/22 04:29 Labs: Laboratory WBC 1.7 X10^3/uL (3.6-10.0) L* 11/06/22 04:29 RBC 3.01 X10^6/uL (3.5-5.4) L 11/06/22 04:29 Hgb 9.5 g/dL (12.0-16.0) L 11/06/22 04:29 Hct 27.9 % (36.0-47.0) L 11/06/22 04:29 MCV 92.9 fL (80.0-100.0) 11/06/22 04:29 MCH 31.6 pg (27.0-34.0) 11/06/22 04:29 MCHC 34.0 g/dL (33.0-35.0) 11/06/22 04:29 RDW 12.9 % (11.6-16.5) 11/06/22 04:29 Plt Count 42 X10^3/uL (150.0-450.0) L 11/06/22 04:29 Plt Count Comment Decreased (ADEQUATE) A 11/05/22 05:17 MPV 8.9 fL (7.4-11.0) 11/06/22 04:29 Neut % (Auto) 73.3 % (42.0-75.0) 11/06/22 04:29 Lymph % (Auto) 15.0 % (21.0-51.0) L 11/06/22 04:29 [place] % (Auto) 6.5 % (0.0-13.0) 11/06/22 04:29 Eos % (Auto) 4.2 % (0.9-2.9) H 11/06/22 04:29 Baso % (Auto) 1.0 % (0.2-1.0) 11/06/22 04:29 Neut # (Auto) 1.2 x10^3/uL (2.2-4.8) L 11/06/22 04:29 Lymph # (Auto) 0.3 X10^3/uL (1.3-2.9) L 11/06/22 04:29 [place] # (Auto) 0.1 x10^3/uL (0.3-0.8) L 11/06/22 04:29 Eos # (Auto) 0.1 x10^3/uL (0.0-0.2) 11/06/22 04:29 Baso # (Auto) 0.0 X10^3/uL (0.0-0.1) 11/06/22 04:29 Absolute Nucleated RBC 0.0 /100WBC 11/06/22 04:29 Total Counted 50 11/05/22 05:17 Neutrophils % (Manual) 70 % (39-76) 11/05/22 05:17 Lymphocytes % (Manual) 18 % (13-43) 11/05/22 05:17 Monocytes % (Manual) 10 % (4-9) H 11/05/22 05:17 Eosinophils % (Manual) 2 % (0-6) 11/05/22 05:17 Basophils % (Manual) 0 % (0-1) 11/05/22 05:17 Toxic Granulation 1+ A 11/05/22 05:17 Plt Morphology Comment Normal (NORMAL) 11/05/22 05:17 RBC Morphology Normal (NORMAL) 11/05/22 05:17 PT 14.9 SECONDS (11.8-14.3) 11/03/22 12:57 INR Target Range - 11/03/22 12:57 INR 1.19 (0.8-1.3) 11/03/22 12:57 APTT 30.7 SECONDS (22.9-36.5) 11/03/22 12:57 PTT Comment - 11/03/22 12:57 Sodium 141 mmol/L (136-145) 11/06/22 04:29 Corrected Sodium TNP 11/06/22 04:29 Potassium 3.7 mmol/L (3.5-5.1) 11/06/22 04:29 Chloride 107 mmol/L (98-107) 11/06/22 04:29 Carbon Dioxide 26.6 mmol/L (21-32) 11/06/22 04:29 BUN 6 mg/dL (7-18) L 11/06/22 04:29 Creatinine 0.90 mg/dL (0.55-1.02) 11/06/22 04:29 Est GFR (MDRD) Af Amer > 60 (>60) 11/06/22 04:29 Est GFR (MDRD) Non-Af > 60 (>60) 11/06/22 04:29 Glucose 94 mg/dL (65-99) 11/06/22 04:29 Calcium 8.0 mg/dL (8.5-10.1) L 11/06/22 04:29 Corrected Calcium 9.0 mg/dL (8.5-10.1) 11/06/22 04:29 Magnesium 1.9 mg/dL (2.0-2.9) L 11/06/22 04:29 Total Bilirubin 0.60 mg/dL (0.2-1.0) 11/06/22 04:29 AST 18 Units/L (15-37) 11/06/22 04:29 ALT 9 Units/L (12-78) L 11/06/22 04:29 Alkaline Phosphatase 58 Units/L (46-116) 11/06/22 04:29 Total Protein 5.5 g/dL (6.4-8.2) L 11/06/22 04:29 Albumin 2.8 g/dL (3.4-5.0) L 11/06/22 04:29 Globulin 2.7 g/dL (2.5-4.5) 11/06/22 04:29 Albumin/Globulin Ratio 1.0 Ratio (1.1-2.1) L 11/06/22 04:29 Specimen Type Clean catch urine 11/03/22 13:42 Urine Color Yellow (YELLOW) 11/03/22 13:42 Urine Appearance Clear (CLEAR) 11/03/22 13:42 Urine pH 6.0 (5.0 - 8.0) 11/03/22 13:42 Ur Specific [place] 1.010 (1.000-1.030) 11/03/22 13:42 Urine Protein Negative (NEGATIVE) 11/03/22 13:42 Urine Glucose (UA) Negative (NEGATIVE) 11/03/22 13:42 Urine Ketones Negative (NEGATIVE) 11/03/22 13:42 Urine Blood Negative (NEGATIVE) 11/03/22 13:42 Urine Nitrite Negative (NEGATIVE) 11/03/22 13:42 Urine Bilirubin Negative (NEGATIVE) 11/03/22 13:42 Urine Urobilinogen Normal (NORMAL) 11/03/22 13:42 Ur Leukocyte Esterase Negative (NEGATIVE) 11/03/22 13:42 Stool Occult Blood Positive (NEGATIVE) A 11/03/22 14:18 SARS-CoV-2 (PCR) Negative (NEGATIVE) 11/03/22 13:35 - Plan (1) Reducible umbilical hernia Status: Acute Plan: NORMAL SALINE WITH 20MEQ KCL AT 125 ML/HR, ZOFRAN 4MG IV Q4H PRN NAUSEA, PROTONIX 40MG IV DAILY, AND ANCEF 2G IV Q8H. RESUME HOME MEDS (2) Acute lower gastrointestinal bleeding Status: Acute (3) Anemia Status: Chronic Qualifiers: Anemia type: iron deficiency Iron deficiency anemia type: unspecified iron deficiency Qualified Code(s): D50.9 - Iron deficiency anemia, unspecified Plan: MONITOR (4) Cirrhosis Status: Chronic Qualifiers: Hepatic cirrhosis type: unspecified hepatic cirrhosis Ascites presence: unspecified Qualified Code(s): K74.60 - Unspecified cirrhosis of liver Plan: RESUME ALDACTONE (5) DM (diabetes mellitus) Status: Chronic Qualifiers: Diabetes mellitus type: type 2 Diabetes mellitus intermediate manager insulin use: unspecified intermediate manager insulin use status Diabetes mellitus complication status: without complication Qualified Code(s): E11.9 - Type 2 diabetes mellitus without complications (6) HTN (hypertension) Status: Chronic Qualifiers: Hypertension type: primary hypertension Qualified Code(s): I10 - Essential (primary) hypertension Plan: RESUME LOSARTAN AND INDERAL (7) Hypothyroidism Status: Chronic Qualifiers: Hypothyroidism type: acquired Qualified Code(s): E03.9 - Hypothyroidism, unspecified Plan: RESUME LEVOTHYROXINE (8) Hyperlipidemia Status: Chronic Qualifiers: Hyperlipidemia type: mixed hyperlipidemia Qualified Code(s): E78.2 - Mixed hyperlipidemia Plan: RESUME LIPITOR (9) Restless leg syndrome Status: Chronic Plan: RESUME REQUIP AND NEURONTIN
[2022-11-06 12:29] VITALS: BP 128/69; PULSE 54; TEMP 98.2; O2SAT 100
== END 2022-11-06 13:10 | disposition home or self-care (01) ==
LOC: MED/SURG 11:28 → ER 11:28 → MED/SURG 17:48
PROVIDERS: ADMIT Internal Medicine; ATTEND Internal Medicine
DX: K74.60 Unspecified cirrhosis of liver; E87.1 Hypo-osmolality and hyponatremia; D50.8 Other iron deficiency anemias; I10 Essential (primary) hypertension; G25.81 Restless legs syndrome; I48.91 Unspecified atrial fibrillation; E11.65 Type 2 diabetes mellitus with hyperglycemia; K92.1 Melena; E78.2 Mixed hyperlipidemia; R10.84 Generalized abdominal pain; K42.0 Umbilical hernia with obstruction, without gangrene; D61.818 Other pancytopenia; Z79.01 Long term (current) use of anticoagulants; K29.80 Duodenitis without bleeding; E03.8 Other specified hypothyroidism; K44.9 Diaphragmatic hernia without obstruction or gangrene; Z20.822 Contact with and (suspected) exposure to COVID-19

== ENCOUNTER 2024-11-19 12:35 | Observation (INO) ==
[2024-11-19 12:58] VITALS: BMI 44.9
[2024-11-19 13:07] LABS: BLOOD/HEMOGLOBIN,URINE NEGATIVE (NEGATIVE); LEUKOCYTE ESTERASE ,URINE NEGATIVE (NEGATIVE); NITRITES,URINE NEGATIVE (NEGATIVE)
[2024-11-19 13:19] LABS: MEAN PLATELET VOLUME 8.9 fL (7.4-11.0); RED CELL DISTRIBUTION WIDTH 13.4 % (11.6-16.5)
[2024-11-19 13:21] LABS: APPEARANCE,URINE CLEAR (CLEAR)
[2024-11-19 13:22] LABS: SQUAMOUS EPITHELIAL CELL,UR FEW /HPF (NEGATIVE)
[2024-11-19 13:32] LABS: COR CA(FOR HYPOALB) 9.2 mg/dL (8.5-10.1); COR NA(FOR HYPERGLY) 138.0 mmol/L (136-145); CREATININE 1.72 mg/dL (0.55-1.02); eGFR NON BLACK RACES 32.0 (>60)
--- NOTE | 2024-11-19 13:47 | DR.EXTPAIN ---
HPI Time seen Time Seen by Provider: 11/19/24 12:35 PCP Primary Care Physician: flaviolock Complaint/Symptoms Chief Complaint Doctor Comments: 64-year-old female presents to ED from home POV complains of past bright red blood in her stool on Sunday night. Patient was seen in the ED in [place] on Sunday where reportedly a CT and labs were done she was prescribed a medication and sent home and she followed up with her PCP yesterday. Patient states she is still passing blood in her stool and having epigastric pain with nausea and vomiting this morning. Chief Complaint:: Patient states sunday night she started passing bright red blood in her stool she went to the er in [place] sunday where labs and ct was done and they gave her medication and sent her home she followed up with her pcp yesterday and she was still passing bright red blood in her stool along with epigastric abd pain and nausea she did vomit this am. COVID-19 Coronavirus risk:travel/contact w/high risk person: No Has patient experienced Coronavirus symptoms: No Source History Provided: Patient Mode of arrival Mode of Arrival: Ambulatory Timing Onset of Chief Complaint: 11/15/24 PMH PMH Past Medical History: Yes Past Medical History: Anemia, Cirrhosis, Diabetes, Dyslipidemia, Hypertension and Hypothyroidism Past Medical History Comment: a-fib, enlarged spleen Past Surgical History: Yes Surgical History: Cholecystectomy and Tonsillectomy Past Surgical History Comment: dnc, hernia repair Family History History of Family Medical Conditions: Yes Family Medical History: Heart Failure and Sudden Cardiac Social History Does patient currently use any type of tobacco product: No Have you used tobacco products in the last 12 months: No Type of Tobacco Use: None Does any household member use tobacco: No Alcohol Use: None Do you use any recreational Drugs:: No Lives With: Alone Lives Where: Home Travel Risk Coronavirus risk:travel/contact w/high risk person: No Has patient experienced Coronavirus symptoms: No Infectious screening In the last 2 months have you had wt loss of >10#?: NO Have you had fever, night sweats or hemotysis?: No Have you traveled outside the country in the last 6 months?: No Isolation: Standard ROS Review of Systems Constitutional: No Symptoms Reported Eyes: No Symptoms Reported ENTM: No Symptoms Reported Respiratoy: No Symptoms Reported Cardiovascular: No Symptoms Reported Gastrointestinal/Abdominal: Nausea and Vomiting Genitourinary: See HPI and Bleeding Neurological: No Symptoms Reported Musculoskeletal: No Symptoms Reported Integumentary: No Symptoms Reported Hematologic/Lymphatic: No Symptoms Reported Endocrine: No Symptoms Reported Psychiatric: No Symptoms Reported All Other Systems: Reviewed and Negative PE Vital Signs Vitals: Vital Signs Temperature 97.8 F Pulse Rate 60 Respiratory Rate 15 Blood Pressure 108/51 O2 Sat by Pulse Oximetry 98 General Limitations: No Limitations General Appearance: Alert and In No Apparent Distress Head Head Exam: Normal Inspection Eyes Eye exam: Normal Appearance ENT ENT Exam: Normal Exam Neck Neck Exam: Normal Inspection Chest Chest Inspection: Normal Inspection Respiratory Respiratory Exam: Normal Lung Sounds Bilat Cardiovascular Cardiovascular Exam: Regular Rate and Normal Rhythm Abdominal Exam Abdominal Exam: Normal Inspection, Normal Bowel Sounds, Soft and Tenderness (Epigastric) Extremities Extremities Exam: Normal Inspection Back Back Exam: Normal Inspection Neurological Neurological Exam: Alert, Oriented X3 and CN II-XII Intact Psychiatric Psychiatric Exam: Normal Affect and Normal Mood Skin Skin Exam: Warm, Dry, Intact and Normal Color COURSE Treatment Treatment: Labs reviewed Compared to [facility] from [facility] 11/19/2024 white count and hemoglobin have not changed 2.3 white count hemoglobin is 10.3 Creatinine increased from 1.5-1.7. CT scan at that time shows abdominal wall thickening and distention duodenal C-sweep without point of transition associated inflammatory stranding. Moderate severity acute duodenitis suspected. Follow-up endoscopy recommended. Discussed with Dr. Khan will admit ROR Labs Reviewed 11/19/24 13:13 11/19/24 13:13 Laboratory: WBC 2.8 X10^3/uL (3.6-10.0) L 11/19/24 13:13 RBC 3.26 X10^6/uL (3.5-5.4) L 11/19/24 13:13 Hgb 10.4 g/dL (12.0-16.0) L 11/19/24 13:13 Hct 30.5 % (36.0-47.0) L 11/19/24 13:13 MCV 93.6 fL (80.0-100.0) 11/19/24 13:13 MCH 32.0 pg (27.0-34.0) 11/19/24 13:13 MCHC 34.2 g/dL (33.0-35.0) 11/19/24 13:13 RDW 13.4 % (11.6-16.5) 11/19/24 13:13 Plt Count 51 X10^3/uL (150.0-450.0) L 11/19/24 13:13 MPV 8.9 fL (7.4-11.0) 11/19/24 13:13 Neut % (Auto) 65.4 % (42.0-75.0) 11/19/24 13:13 Lymph % (Auto) 15.4 % (21.0-51.0) L 11/19/24 13:13 [place] % (Auto) 11.2 % (0.0-13.0) 11/19/24 13:13 Eos % (Auto) 7.1 % (0.9-2.9) H 11/19/24 13:13 Baso % (Auto) 0.9 % (0.2-1.0) 11/19/24 13:13 Neut # (Auto) 1.9 x10^3/uL (2.2-4.8) L 11/19/24 13:13 Lymph # (Auto) 0.4 X10^3/uL (1.3-2.9) L 11/19/24 13:13 [place] # (Auto) 0.3 x10^3/uL (0.3-0.8) 11/19/24 13:13 Eos # (Auto) 0.2 x10^3/uL (0.0-0.2) 11/19/24 13:13 Baso # (Auto) 0.0 X10^3/uL (0.0-0.1) 11/19/24 13:13 Absolute Nucleated RBC 0.0 /100WBC 11/19/24 13:13 Sodium 137 mmol/L (136-145) 11/19/24 13:13 Corrected Sodium 138 mmol/L (136-145) 11/19/24 13:13 Potassium 4.1 mmol/L (3.5-5.1) 11/19/24 13:13 Chloride 99 mmol/L (98-107) 11/19/24 13:13 Carbon Dioxide 31.0 mmol/L (21-32) 11/19/24 13:13 BUN 14 mg/dL (7-18) 11/19/24 13:13 Creatinine 1.72 mg/dL (0.55-1.02) H 11/19/24 13:13 Est GFR (MDRD) Af Amer 39 (>60) L 11/19/24 13:13 Est GFR (MDRD) Non-Af 32 (>60) L 11/19/24 13:13 Glucose 125 mg/dL (65-99) H 11/19/24 13:13 Calcium 8.6 mg/dL (8.5-10.1) 11/19/24 13:13 Corrected Calcium 9.2 mg/dL (8.5-10.1) 11/19/24 13:13 Total Bilirubin 0.80 mg/dL (0.2-1.0) 11/19/24 13:13 AST 27 Units/L (15-37) 11/19/24 13:13 ALT 8 Units/L (12-78) L 11/19/24 13:13 Alkaline Phosphatase 84 Units/L (46-116) 11/19/24 13:13 Total Protein 6.3 g/dL (6.4-8.2) L 11/19/24 13:13 Albumin 3.2 g/dL (3.4-5.0) L 11/19/24 13:13 Globulin 3.1 g/dL (2.5-4.5) 11/19/24 13:13 Albumin/Globulin Ratio 1.0 Ratio (1.1-2.1) L 11/19/24 13:13 Specimen Type Clean catch urine 11/19/24 12:54 Urine Color Yellow (YELLOW) 11/19/24 12:54 Urine Appearance Clear (CLEAR) 11/19/24 12:54 Urine pH 6.0 (5.0 - 8.0) 11/19/24 12:54 Ur Specific [place] 1.010 (1.000-1.030) 11/19/24 12:54 Urine Protein 1+ (NEGATIVE) 11/19/24 12:54 Urine Glucose (UA) Negative (NEGATIVE) 11/19/24 12:54 Urine Ketones Negative (NEGATIVE) 11/19/24 12:54 Urine Blood Negative (NEGATIVE) 11/19/24 12:54 Urine Nitrite Negative (NEGATIVE) 11/19/24 12:54 Urine Bilirubin Negative (NEGATIVE) 11/19/24 12:54 Urine Urobilinogen Normal (NORMAL) 11/19/24 12:54 Ur Leukocyte Esterase Negative (NEGATIVE) 11/19/24 12:54 Urine RBC 0-2 /HPF (0-3) 11/19/24 12:54 Urine WBC 0-2 /HPF (0-5) 11/19/24 12:54 Ur Squamous Epith Cells Few /HPF (NEGATIVE) 11/19/24 12:54 Urine Bacteria Trace /HPF (NEGATIVE) 11/19/24 12:54 Ur Culture Indicated? No/not indicated 11/19/24 12:54 Opioid Opioid Risk Tool Age (Hector box if 16-45): No History of Preadolescent Sexual Abuse: No Total: 0 Total Score Risk Category: Low Risk Copyright: Ralph JACKSON predicting aberrant behaviors Discharge Plan Diagnosis Discharge Problem: Duodenitis Discharge Plan Patient Disposition: ADMITTED INPATIENT Condition: Stable Prescriptions: No Action losartan 50 mg tablet 50 mg PO QDAY furosemide 40 mg tablet 40 mg PO QDAY ropinirole 1 mg tablet 1 mg PO QPM cetirizine 10 mg tablet 10 mg PO QDAY ferrous sulfate [FeroSul] 325 mg (65 mg iron) tablet 325 mg PO BID gabapentin 300 mg capsule 300 mg PO BID Eliquis 5 mg tablet 5 mg PO BID atorvastatin 10 mg tablet 10 mg PO QPM meloxicam 15 mg tablet 15 mg PO QDAY sucralfate 1 gram tablet 1 g PO QID levothyroxine 75 mcg tablet 75 mcg PO QDAY propranolol 10 mg tablet 20 mg PO TID promethazine 25 mg tablet 25 mg PO Q6H PRN (Reason: nausea/vomiting) spironolactone 50 mg tablet 50 mg PO QDAY pantoprazole 40 mg tablet,delayed release (DR/EC) 40 mg PO BID aspirin 81 mg Tablet,Delayed Release (Dr/Ec) 81 mg PO DAILY amoxicillin 500 mg capsule 500 mg PO BID clarithromycin 500 mg tablet 500 mg PO BID temazepam 7.5 mg capsule 7.5 mg PO QPM celecoxib 100 mg capsule 100 mg PO BID dabigatran etexilate 150 mg capsule 150 mg PO BID Health Concerns: Post Hospitalization: new medications and changes needed to prevent readmission or further decline. Pt educated and given instructions on all concerns. Plan of Treatment: Continue with present treatment and follow up plan. Pt is to keep follow up appointment as instructed and take medications as ordered. Follow ups/Referrals Follow ups/Referrals: Justin Hurt [Primary Care Provider, Unknown] - 3 days Instructions Print Language: IVORIAN
--- NOTE | 2024-11-19 14:56 | DR.EXTPAIN ---
HPI Time seen Time Seen by Provider: 11/19/24 12:35 PCP Primary Care Physician: meliza Complaint/Symptoms Chief Complaint:: Patient states sunday night she started passing bright red blood in her stool she went to the er in [place] sunday where labs and ct was done and they gave her medication and sent her home she followed up with her pcp yesterday and she was still passing bright red blood in her stool along with epigastric abd pain and nausea she did vomit this am. COVID-19 Coronavirus risk:travel/contact w/high risk person: No Has patient experienced Coronavirus symptoms: No Source History Provided: Patient Mode of arrival Mode of Arrival: Ambulatory Timing Onset of Chief Complaint: 11/15/24 PMH PMH Past Medical History: Yes Past Medical History: Anemia, Cirrhosis, Diabetes, Dyslipidemia, Hypertension and Hypothyroidism Past Medical History Comment: a-fib, enlarged spleen Past Surgical History: Yes Surgical History: Cholecystectomy and Tonsillectomy Past Surgical History Comment: dnc, hernia repair Family History History of Family Medical Conditions: Yes Family Medical History: Heart Failure and Sudden Cardiac Social History Does patient currently use any type of tobacco product: No Have you used tobacco products in the last 12 months: No Type of Tobacco Use: None Does any household member use tobacco: No Alcohol Use: None Do you use any recreational Drugs:: No Lives With: Alone Lives Where: Home Travel Risk Coronavirus risk:travel/contact w/high risk person: No Has patient experienced Coronavirus symptoms: No Infectious screening In the last 2 months have you had wt loss of >10#?: NO Have you had fever, night sweats or hemotysis?: No Have you traveled outside the country in the last 6 months?: No Isolation: Standard PE Vital Signs Vitals: Vital Signs Temperature 97.8 F Pulse Rate 60 Respiratory Rate 15 Blood Pressure 108/51 O2 Sat by Pulse Oximetry 98 ROR Labs Reviewed 11/19/24 13:13 11/19/24 13:13 Laboratory: WBC 2.8 X10^3/uL (3.6-10.0) L 11/19/24 13:13 RBC 3.26 X10^6/uL (3.5-5.4) L 11/19/24 13:13 Hgb 10.4 g/dL (12.0-16.0) L 11/19/24 13:13 Hct 30.5 % (36.0-47.0) L 11/19/24 13:13 MCV 93.6 fL (80.0-100.0) 11/19/24 13:13 MCH 32.0 pg (27.0-34.0) 11/19/24 13:13 MCHC 34.2 g/dL (33.0-35.0) 11/19/24 13:13 RDW 13.4 % (11.6-16.5) 11/19/24 13:13 Plt Count 51 X10^3/uL (150.0-450.0) L 11/19/24 13:13 MPV 8.9 fL (7.4-11.0) 11/19/24 13:13 Neut % (Auto) 65.4 % (42.0-75.0) 11/19/24 13:13 Lymph % (Auto) 15.4 % (21.0-51.0) L 11/19/24 13:13 [place] % (Auto) 11.2 % (0.0-13.0) 11/19/24 13:13 Eos % (Auto) 7.1 % (0.9-2.9) H 11/19/24 13:13 Baso % (Auto) 0.9 % (0.2-1.0) 11/19/24 13:13 Neut # (Auto) 1.9 x10^3/uL (2.2-4.8) L 11/19/24 13:13 Lymph # (Auto) 0.4 X10^3/uL (1.3-2.9) L 11/19/24 13:13 [place] # (Auto) 0.3 x10^3/uL (0.3-0.8) 11/19/24 13:13 Eos # (Auto) 0.2 x10^3/uL (0.0-0.2) 11/19/24 13:13 Baso # (Auto) 0.0 X10^3/uL (0.0-0.1) 11/19/24 13:13 Absolute Nucleated RBC 0.0 /100WBC 11/19/24 13:13 Sodium 137 mmol/L (136-145) 11/19/24 13:13 Corrected Sodium 138 mmol/L (136-145) 11/19/24 13:13 Potassium 4.1 mmol/L (3.5-5.1) 11/19/24 13:13 Chloride 99 mmol/L (98-107) 11/19/24 13:13 Carbon Dioxide 31.0 mmol/L (21-32) 11/19/24 13:13 BUN 14 mg/dL (7-18) 11/19/24 13:13 Creatinine 1.72 mg/dL (0.55-1.02) H 11/19/24 13:13 Est GFR (MDRD) Af Amer 39 (>60) L 11/19/24 13:13 Est GFR (MDRD) Non-Af 32 (>60) L 11/19/24 13:13 Glucose 125 mg/dL (65-99) H 11/19/24 13:13 Calcium 8.6 mg/dL (8.5-10.1) 11/19/24 13:13 Corrected Calcium 9.2 mg/dL (8.5-10.1) 11/19/24 13:13 Total Bilirubin 0.80 mg/dL (0.2-1.0) 11/19/24 13:13 AST 27 Units/L (15-37) 11/19/24 13:13 ALT 8 Units/L (12-78) L 11/19/24 13:13 Alkaline Phosphatase 84 Units/L (46-116) 11/19/24 13:13 Total Protein 6.3 g/dL (6.4-8.2) L 11/19/24 13:13 Albumin 3.2 g/dL (3.4-5.0) L 11/19/24 13:13 Globulin 3.1 g/dL (2.5-4.5) 11/19/24 13:13 Albumin/Globulin Ratio 1.0 Ratio (1.1-2.1) L 11/19/24 13:13 Specimen Type Clean catch urine 11/19/24 12:54 Urine Color Yellow (YELLOW) 11/19/24 12:54 Urine Appearance Clear (CLEAR) 11/19/24 12:54 Urine pH 6.0 (5.0 - 8.0) 11/19/24 12:54 Ur Specific [place] 1.010 (1.000-1.030) 11/19/24 12:54 Urine Protein 1+ (NEGATIVE) 11/19/24 12:54 Urine Glucose (UA) Negative (NEGATIVE) 11/19/24 12:54 Urine Ketones Negative (NEGATIVE) 11/19/24 12:54 Urine Blood Negative (NEGATIVE) 11/19/24 12:54 Urine Nitrite Negative (NEGATIVE) 11/19/24 12:54 Urine Bilirubin Negative (NEGATIVE) 11/19/24 12:54 Urine Urobilinogen Normal (NORMAL) 11/19/24 12:54 Ur Leukocyte Esterase Negative (NEGATIVE) 11/19/24 12:54 Urine RBC 0-2 /HPF (0-3) 11/19/24 12:54 Urine WBC 0-2 /HPF (0-5) 11/19/24 12:54 Ur Squamous Epith Cells Few /HPF (NEGATIVE) 11/19/24 12:54 Urine Bacteria Trace /HPF (NEGATIVE) 11/19/24 12:54 Ur Culture Indicated? No/not indicated 11/19/24 12:54 Opioid Opioid Risk Tool Age (Hector box if 16-45): No History of Preadolescent Sexual Abuse: No Total: 0 Total Score Risk Category: Low Risk Copyright: Ralph JACKSON predicting aberrant behaviors Discharge Plan Diagnosis Discharge Problem: Duodenitis Discharge Plan Patient Disposition: 09 ADMITTED INPATIENT Condition: Stable Prescriptions: No Action losartan 50 mg tablet 50 mg PO QDAY furosemide 40 mg tablet 40 mg PO QDAY ropinirole 1 mg tablet 1 mg PO QPM cetirizine 10 mg tablet 10 mg PO QDAY ferrous sulfate [FeroSul] 325 mg (65 mg iron) tablet 325 mg PO BID gabapentin 300 mg capsule 300 mg PO BID Eliquis 5 mg tablet 5 mg PO BID atorvastatin 10 mg tablet 10 mg PO QPM meloxicam 15 mg tablet 15 mg PO QDAY sucralfate 1 gram tablet 1 g PO QID levothyroxine 75 mcg tablet 75 mcg PO QDAY propranolol 10 mg tablet 20 mg PO TID promethazine 25 mg tablet 25 mg PO Q6H PRN (Reason: nausea/vomiting) spironolactone 50 mg tablet 50 mg PO QDAY pantoprazole 40 mg tablet,delayed release (DR/EC) 40 mg PO BID aspirin 81 mg Tablet,Delayed Release (Dr/Ec) 81 mg PO DAILY amoxicillin 500 mg capsule 500 mg PO BID clarithromycin 500 mg tablet 500 mg PO BID temazepam 7.5 mg capsule 7.5 mg PO QPM celecoxib 100 mg capsule 100 mg PO BID dabigatran etexilate 150 mg capsule 150 mg PO BID Health Concerns: Post Hospitalization: new medications and changes needed to prevent readmission or further decline. Pt educated and given instructions on all concerns. Plan of Treatment: Continue with present treatment and follow up plan. Pt is to keep follow up appointment as instructed and take medications as ordered. Orders to Discharge Patient Discharge Orders: Transfer (Routine); Ordered 11/19/24 Ordered By: Michael Lui Follow ups/Referrals Follow ups/Referrals: Justin Hurt [Primary Care Provider, Unknown] - 3 days Instructions Print Language: GEORGI[place]
[2024-11-19] MEDS ORDERED: TYLENOL 325 MG TAB PO PRN (17:25)
[2024-11-19] MEDS ORDERED: NORCO 5/325 MG TAB PO PRN (17:25)
[2024-11-19] MEDS ORDERED: ULTRAM PO PRN (17:25)
[2024-11-19] MEDS ORDERED: CONSULT PHARMACY - POTASSIUM & MAGNESIUM XX SCH (17:25)
--- NOTE | 2024-11-19 17:41 | DR.H&P ---
H&P History & Physical for Day of: H&P Date: 11/19/24 Chief Complaint Chief Complaint: BLOOD IN STOOL History of Present Illness History of Present Illness: Patient states Sunday night she started passing bright red blood in her stool she went to the er in [place] sunday where labs and ct was done. They gave her medication and sent her home she followed up with her pcp yesterday, and she was still passing bright red blood in her stool, along with epigastric abd pain and nausea. She did vomit this am. Past Medical History Past Medical History: Anemia, Cirrhosis, Diabetes, Dyslipidemia, Hypertension and Hypothyroidism Past Surgical History Surgical History: Cholecystectomy and Tonsillectomy Family History Family Medical History: Heart Failure and Sudden Cardiac Social History Does patient currently use any type of tobacco product: No Have you used tobacco products in the last 12 months: No Type of Tobacco Use: None Does any household member use tobacco: No Alcohol Use: None Medications Home Medications: Home Medications Medication Instructions Recorded Confirmed Type aspirin 81 mg tablet,delayed 81 mg PO DAILY 11/03/22 0 11/19/24 History release cetirizine 10 mg tablet 10 mg PO QDAY 11/03/2211/19 History ferrous sulfate 325 mg (65 mg 325 mg PO BID 11/03/22 0 11/19/24 History iron) tablet (FeroSul) furosemide 40 mg tablet 40 mg PO QDAY 11/03/2211/19 History gabapentin 300 mg capsule 300 mg PO BID 11/03/2211/19 History levothyroxine 75 mcg tablet 75 mcg PO QDAY 11/03/22 History losartan 50 mg tablet 50 mg PO QDAY 11/03/2211/19 History meloxicam 15 mg tablet 15 mg PO QDAY 11/03/2211/19 History pantoprazole 40 mg tablet,delayed 40 mg PO BID 3 11/19/24 History release promethazine 25 mg tablet 25 mg PO Q6H PRN nausea/vomi ting 11/03/22 11/19/24 History propranolol 10 mg tablet 20 mg PO TID 11/03/22 History spironolactone 50 mg tablet 50 mg PO QDAY 11/03/22 History amoxicillin 500 mg capsule 500 mg PO BID 11/19/2410/28 History celecoxib 100 mg capsule 100 mg PO BID 11/19/2411/19 History clarithromycin 500 mg tablet 500 mg PO BID 11/19/24 History dabigatran etexilate 150 mg capsule 150 mg PO BID 10/2811/19/24 History simvastatin 10 mg tablet 10 mg PO QPM 11/19/24 History temazepam 7.5 mg capsule 7.5 mg PO QPM 11/19/2411/19 History Allergies Allergies Allergy/AdvReac Type Severity Reaction Status Date / Time No Known Allergies Allergy Verified 11/19/24 12:59 Labs 11/19/24 13:13 11/19/24 13:13 Labs: Laboratory WBC 2.8 X10^3/uL (3.6-10.0) L 11/19/24 13:13 RBC 3.26 X10^6/uL (3.5-5.4) L 11/19/24 13:13 Hgb 10.4 g/dL (12.0-16.0) L 11/19/24 13:13 Hct 30.5 % (36.0-47.0) L 11/19/24 13:13 MCV 93.6 fL (80.0-100.0) 11/19/24 13:13 MCH 32.0 pg (27.0-34.0) 11/19/24 13:13 MCHC 34.2 g/dL (33.0-35.0) 11/19/24 13:13 RDW 13.4 % (11.6-16.5) 11/19/24 13:13 Plt Count 51 X10^3/uL (150.0-450.0) L 11/19/24 13:13 MPV 8.9 fL (7.4-11.0) 11/19/24 13:13 Neut % (Auto) 65.4 % (42.0-75.0) 11/19/24 13:13 Lymph % (Auto) 15.4 % (21.0-51.0) L 11/19/24 13:13 [place] % (Auto) 11.2 % (0.0-13.0) 11/19/24 13:13 Eos % (Auto) 7.1 % (0.9-2.9) H 11/19/24 13:13 Baso % (Auto) 0.9 % (0.2-1.0) 11/19/24 13:13 Neut # (Auto) 1.9 x10^3/uL (2.2-4.8) L 11/19/24 13:13 Lymph # (Auto) 0.4 X10^3/uL (1.3-2.9) L 11/19/24 13:13 [place] # (Auto) 0.3 x10^3/uL (0.3-0.8) 11/19/24 13:13 Eos # (Auto) 0.2 x10^3/uL (0.0-0.2) 11/19/24 13:13 Baso # (Auto) 0.0 X10^3/uL (0.0-0.1) 11/19/24 13:13 Absolute Nucleated RBC 0.0 /100WBC 11/19/24 13:13 Sodium 137 mmol/L (136-145) 11/19/24 13:13 Corrected Sodium 138 mmol/L (136-145) 11/19/24 13:13 Potassium 4.1 mmol/L (3.5-5.1) 11/19/24 13:13 Chloride 99 mmol/L (98-107) 11/19/24 13:13 Carbon Dioxide 31.0 mmol/L (21-32) 11/19/24 13:13 BUN 14 mg/dL (7-18) 11/19/24 13:13 Creatinine 1.72 mg/dL (0.55-1.02) H 11/19/24 13:13 Est GFR (MDRD) Af Amer 39 (>60) L 11/19/24 13:13 Est GFR (MDRD) Non-Af 32 (>60) L 11/19/24 13:13 Glucose 125 mg/dL (65-99) H 11/19/24 13:13 Calcium 8.6 mg/dL (8.5-10.1) 11/19/24 13:13 Corrected Calcium 9.2 mg/dL (8.5-10.1) 11/19/24 13:13 Total Bilirubin 0.80 mg/dL (0.2-1.0) 11/19/24 13:13 AST 27 Units/L (15-37) 11/19/24 13:13 ALT 8 Units/L (12-78) L 11/19/24 13:13 Alkaline Phosphatase 84 Units/L (46-116) 11/19/24 13:13 Total Protein 6.3 g/dL (6.4-8.2) L 11/19/24 13:13 Albumin 3.2 g/dL (3.4-5.0) L 11/19/24 13:13 Globulin 3.1 g/dL (2.5-4.5) 11/19/24 13:13 Albumin/Globulin Ratio 1.0 Ratio (1.1-2.1) L 11/19/24 13:13 Specimen Type Clean catch urine 11/19/24 12:54 Urine Color Yellow (YELLOW) 11/19/24 12:54 Urine Appearance Clear (CLEAR) 11/19/24 12:54 Urine pH 6.0 (5.0 - 8.0) 11/19/24 12:54 Ur Specific [place] 1.010 (1.000-1.030) 11/19/24 12:54 Urine Protein 1+ (NEGATIVE) 11/19/24 12:54 Urine Glucose (UA) Negative (NEGATIVE) 11/19/24 12:54 Urine Ketones Negative (NEGATIVE) 11/19/24 12:54 Urine Blood Negative (NEGATIVE) 11/19/24 12:54 Urine Nitrite Negative (NEGATIVE) 11/19/24 12:54 Urine Bilirubin Negative (NEGATIVE) 11/19/24 12:54 Urine Urobilinogen Normal (NORMAL) 11/19/24 12:54 Ur Leukocyte Esterase Negative (NEGATIVE) 11/19/24 12:54 Urine RBC 0-2 /HPF (0-3) 11/19/24 12:54 Urine WBC 0-2 /HPF (0-5) 11/19/24 12:54 Ur Squamous Epith Cells Few /HPF (NEGATIVE) 11/19/24 12:54 Urine Bacteria Trace /HPF (NEGATIVE) 11/19/24 12:54 Ur Culture Indicated? No/not indicated 11/19/24 12:54 Review of Systems Constitutional: Malaise Eyes: No Symptoms Reported ENT: No Symptoms Reported Respiratory: No Symptoms Reported Cardiovascular: Palpitations Gastrointestinal: Melena Genitourinary: No Symptoms Reported Musculoskeletal: Back Pain Skin: No Symptoms Reported Neurological: No Symptoms Reported Physical Exam Vital Signs: Vital Signs Temperature 97.8 F Pulse Rate 60 Respiratory Rate 15 Blood Pressure 108/51 O2 Sat by Pulse Oximetry 98 Oriented: Normal Eyes: Normal Nose: Normal Throat: Normal Respiratory: RLL Diminished and LLL Diminished Cardiovascular: negative Tachycardia Auscultation: Bowel Sounds: Normal Palpation: Spleen Enlarged and Liver Enlarged Tenderness: Diffuse and Mild Skin: Decreased [place] Musculoskeletal: Normal Psychiatric: Normal Affect: Normal Speech Pattern: Clear and Appropriate Assessment/Plan (1) Duodenitis: Status: Acute Plan: IV HYDRATION, PAIN CONTROL REVIEW HOME MEDICATIONS OCCULT STOOL AND STOOL CULTURE PT/INR, BP CONTROL PPI THERAPY (2) HTN (hypertension): Qualifiers: Hypertension type: primary hypertension Qualified Code(s): I10 - Essential (primary) hypertension Status: Chronic (3) Cirrhosis: Qualifiers: Hepatic cirrhosis type: unspecified hepatic cirrhosis Ascites presence: unspecified Qualified Code(s): K74.60 - Unspecified cirrhosis of liver Status: Chronic (4) Anemia: Qualifiers: Anemia type: iron deficiency Iron deficiency anemia type: unspecified iron deficiency Qualified Code(s): D50.9 - Iron deficiency anemia, unspecified Status: Chronic (5) Acute lower gastrointestinal bleeding: Status: Acute (6) Hypothyroidism: Qualifiers: Hypothyroidism type: acquired Qualified Code(s): E03.9 - Hypothyroidism, unspecified Status: Chronic
[2024-11-19 18:00] LABS: INR 1.05 (0.8-1.3)
[2024-11-19] MEDS: INDERAL TAB 10 MG PO SCH (21:24)
[2024-11-19] MEDS: NEURONTIN CAP 300 MG PO SCH (21:24)
[2024-11-19] MEDS: NovoLIN R (or HumuLIN R) SUBCUT PRN (21:25)
[2024-11-19] MEDS: ELIQUIS PO SCH (22:48)
[2024-11-20 05:59] LABS: MEAN PLATELET VOLUME 9.3 fL (7.4-11.0); RED CELL DISTRIBUTION WIDTH 13.2 % (11.6-16.5)
[2024-11-20 06:09] LABS: COR CA(FOR HYPOALB) 9.3 mg/dL (8.5-10.1); COR NA(FOR HYPERGLY) 138.0 mmol/L (136-145); CREATININE 1.48 mg/dL (0.55-1.02); eGFR NON BLACK RACES 38.0 (>60)
[2024-11-20 06:34] LABS: BAND NEUTROPHILS % 1 % (0-10); PLATELET MORPHOLOGY COMMENT NORMAL (NORMAL)
[2024-11-20 08:23] LABS: RETICULOCYTE % 1.34 % (0.8-2.2)
[2024-11-20] MEDS: PROTONIX INJ 40 MG VIAL IVP SCH (08:59)
[2024-11-20] MEDS: LASIX PO SCH (09:00)
[2024-11-20] MEDS: COZAAR PO SCH (11:53)
[2024-11-20] MEDS: NS 1,000 ML IV 1,000 ML IV SCH (20:55)
[2024-11-20] MEDS: SNACK - Diabetic Appropriate PO SCH (20:56)
[2024-11-20] MEDS ORDERED: ELIQUIS PO SCH (21:00)
[2024-11-21 06:14] LABS: MEAN PLATELET VOLUME 9.1 fL (7.4-11.0); RED CELL DISTRIBUTION WIDTH 13.2 % (11.6-16.5)
[2024-11-21 06:33] LABS: COR CA(FOR HYPOALB) 9.0 mg/dL (8.5-10.1); COR NA(FOR HYPERGLY) 138.0 mmol/L (136-145); CREATININE 1.54 mg/dL (0.55-1.02); eGFR NON BLACK RACES 36.0 (>60)
[2024-11-21] MEDS: NS 1,000 ML IV 1,000 ML ONE (09:27)
[2024-11-21] MEDS: DIPRIVAN VIAL 20 ML ONE (09:34)
[2024-11-21] MEDS: PROTONIX TAB 40 MG PO SCH (11:03)
[2024-11-21 12:09] VITALS: BP 137/66; PULSE 60; RESP 20; TEMP 98; O2SAT 98
== END 2024-11-21 13:30 | disposition home or self-care (01) ==
LOC: ER 12:35 → MED/SURG 12:35
PROVIDERS: ADMIT Internal Medicine; ATTEND Internal Medicine
DX: Z87.11 Personal history of peptic ulcer disease; K92.1 Melena; D61.818 Other pancytopenia; I85.00 Esophageal varices without bleeding; K29.80 Duodenitis without bleeding; R10.13 Epigastric pain; K92.0 Hematemesis; K29.00 Acute gastritis without bleeding; E03.9 Hypothyroidism, unspecified; E11.65 Type 2 diabetes mellitus with hyperglycemia; D64.9 Anemia, unspecified; I10 Essential (primary) hypertension; K74.60 Unspecified cirrhosis of liver; R16.1 Splenomegaly, not elsewhere classified; D50.9 Iron deficiency anemia, unspecified; Z79.01 Long term (current) use of anticoagulants; I48.91 Unspecified atrial fibrillation